=== PATIENT | male | born 1990 | race African-American/Black ===

== ENCOUNTER 2023-05-25 19:06 | Outpatient (REF) | payer OTHER, SELFPAY ==
--- NOTE | ~2023-05-25 | MR_ITS ---
EXAMINATION: MR CERVICAL SPINE WITHOUT CONTRAST CLINICAL INFORMATION: Quadriparesis COMPARISON: None TECHNIQUE: MRI of the cervical spine was obtained using routine sequences without contrast. FINDINGS: The craniocervical junction is intact. There is dextrocurvature of the cervical spine and partially imaged thoracic levocurvature. The cervical lordosis is preserved. Slight retrolisthesis at C3-C4 and C4-C5. Vertebral body heights are normal without acute compression fracture. No suspicious osseous lesion. There is multilevel disc desiccation with mild cited disc height loss along the concavity of the cervical dextrocurvature. Minimal cervical spondylosis with annular disc bulges, uncovertebral spurring, and asymmetric left-sided facet arthropathy, notably contributing to moderate left and mild right C3-C4 and C4-C5 neural foraminal stenosis. No spinal canal stenosis at any level. There is extensive volume loss and myelomalacia throughout the right greater than left cervical cord extending from the cervicomedullary junction throughout the cervical cord with relative dorsal positioning of the cord within the thecal sac. Myelomalacia extends into the thoracic cord to at least the level of T2 with partially imaged diminutive/atrophied appearance of the thoracic cord extending inferiorly beyond the [id number]. No epidural fluid collection, mass, or hematoma. No significant abnormalities of the paraspinal musculature. The flow voids of the major cervical vessels are maintained. The visualized intracranial structures are normal. Retention cyst in the left maxillary sinus alveolar recess with mild mucosal disease along the roof. No demonstrated abnormalities in the visualized neck. MR/MR cervical spine wo con IMPRESSION: 1. Extensive volume loss and myelomalacia throughout the cervicothoracic cord as above. 2. Cervical dextroscoliosis and partially imaged thoracic levoscoliosis. Discogenic disease and spondylitic changes along the concavity of the cervical dextrocurvature with resultant moderate left and mild right C3-C4 and C4-C5 neural foraminal stenosis. No significant spinal canal stenosis.
== END 2023-05-25 19:07 | disposition home or self-care (01) ==
LOC: HO.MRI 19:06
PROVIDERS: PCP Family Medicine; Visit Provider Psychiatry & Neurology Neurology
DX: G82.50 Quadriplegia, unspecified (principal)
CPT/HCPCS: 72141

== ENCOUNTER 2025-03-06 11:13 | Outpatient (AMB) | payer OTHER, SELFPAY ==
--- NOTE | 2025-03-06 11:19 | A.OFFVIS_ITS ---
Intake Visit Reasons: 1 Year Allergies No Known Allergies Allergy (Verified 02/27/25 06:56) HPI Comments Details: 34 yo man, orginally from [place], played soccer in childhood until about 12 years old when he started having problems. He was told that this was due to scoliosis and unless he would have surgery, he might not walk. Surgery was never done and he progressviely worsened. Now his both hands and legs were involved with weakness. His MRI of spine revealed extensive cervical and thoracic area myelomalacia and syrinx. He had the second neurosurgical opinion and he was told that surgery may not work. He said that he was doing all right with no new problems. He has help at home mostly by family. No bowel bladder difficulties. [facility] Medical History (Updated 03/06/25 @ 11:21 by Florence Grissom MD) Scoliosis Myelopathy Quadriparesis Review of Systems Const Details: No bowel bladder difficulties. Physical Exam Neuro Other: He is alert and awake with normal spontaneity of speech fluency comprehension and affect. Poor dental hygiene. Face is symmetrical. Visual duckworth are full. There was significant contraction of both hands with very limited movement of l eft thumb and index finger. He is walking in a ataxic gait swing [id number]. Speech is okay. Assessment & Plan Assessment & Plan (1) Quadriparesis: Code(s): G82.50 - Quadriplegia, unspecified Category: Medical (2) Myelopathy: Comment: MRI C spine at [facility] [place] in May 2023: Extensive myelomalacia and syrinx in C and T spinal cord. Code(s): G95.9 - Disease of spinal cord, unspecified Category: Medical (3) Scoliosis: Code(s): M41.9 - Scoliosis, unspecified Category: Medical Qualifiers: Scoliosis type: thoracogenic Spinal region: thoracolumbar Qualified Code(s): M41.35 - Thoracogenic scoliosis, thoracolumbar region (4) Multifactorial gait disorder: Code(s): R26.89 - Other abnormalities of gait and mobility Category: Medical Plan Impression recommendations: 34 years old man with multifactorial gait disorder mostly from extensive myelomalacia with a syrinx in cervical and thoracic area and scoliosis. There was no surgical option. Clinically, he was stable at this time. He was reassured educated and was advised to stay active and walk regularly with frequent intervals. His follow-up would be on as needed basis. Coding Level of Care Code Est Pt Level 4 (08243) Diagnoses Quadriparesis G82.50 Myelopathy G95.9 Thoracogenic scoliosis of thoracolumbar region M41.35 Scoliosis type: thoracogenic Spinal region: thoracolumbar Multifactorial gait disorder R26.89
--- OUTSIDE RECORDS SUMMARY | 2025-03-06 12:32 | XMS_ITS ---
Author Name [facility] Organization Unknown Care Team Organization Name Specialty Phone Email Start Date End Da te [facility] RIC GUAN Primary Care 04/12/2023 02/26/2024
--- OUTSIDE RECORDS SUMMARY | 2025-03-06 12:32 | XMS_ITS | Clinical Summary ---
Author Organization [facility] it Address [address] [place] [address] Care Team Providers Care [employer] Teacher Name Role Phone Elin Schroeder MD Primary Care Provider Allergies No known active allergies Active Problems Problem Noted Date Diagnosed Date Spastic quadriparesis ([facility] V24, [facility] V28) 01/27/2023 Syrinx of spinal cord ([facility] V24, [facility] V28) 01/27/2023 Infantile idiopathic scoliosis of thoracolumbar region 01/24/2023 Lower limb length difference 01/24/2023 Flexion deformity 01/24/2023 Arnold-Chiari malformation ([facility] V24, [facility] V28) 01/24/2023 Surgical History Surgery Date Site/Laterality Comments OTHER SURGICAL HISTORY PROCEDURE: DENIES PREVIOUS SURGERY Medical History Medical History Date Comments Scoliosis DX:Scoliosis Arnold-Chiari malformation ( [facility] V24, [facility] V28) DX:Arnold-Chiari malformatio n ([facility]) Osteoporosis DX:Osteoporosis TB lung, latent DX:TB lung, late nt; COMMENT: completed treatment w/ INH at [facility] Humerus fracture DX:Humerus frac ture; COMMENT: right humerus fracture 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 Family History Relation Name Status Comments Brother Alive Father Alive Mother Alive Sister 1 Alive Sister 2 Alive Social History Tobacco Use Types Packs/Day Years Used Date Smoking Tobacco: Never Smokeless Tobacco: Never Alcohol Use Standard Drinks/Week Comments Not Currently 0 (1 standard drink = 0.6 oz pur e alcohol) Sex and Gender Information Value Date Recorded Sex Assigned at Not on file Legal Sex Male 8:27 PM EST Gender Identity Not on file Sexual Orientation Not on file Obstetrics History Last Filed Vital Signs Vital Sign Reading Time Taken Comments Blood Pressure 112/60 09/19/2023 1:31 PM EDT Pulse 62 09/19/2023 1:31 PM EDT Temperature - - Respiratory Rate - - Oxygen Saturation - - Inhaled Oxygen Concentration - - Weight 52.2 kg (115 lb) 09/19/2023 1:31 PM EDT Height 165.1 cm (5' 5 ) 09/19/2023 1:31 PM EDT Body Mass Index 19.14 09/19/2023 1:31 PM EDT Plan of Treatment Health Maintenance Due Date Last Done Comments DTaP,Tdap,and Td Vaccines (1 - Tdap) 2009 Hepatitis B Vaccines (1 of 3 - 19+ 3-dose series) 2009 HIV Screening 08/04/2023 Hepatitis C Screening 08/04/2023 Social Influencers of Health Screening 08/04/2023 COVID-19 Vaccine (1 - 2023-2 5 season) 2024 Depression Screening 07/10/2024 Influenza Vaccine (#1) 2025 HIB Vaccines Aged Out No longer eligi ble based on patient's age to complete this topic HPV Vaccines Aged Out No longer eligi ble based on patient's age to complete this topic Hepatitis A Vaccines Aged Out No long er eligible based on patient's age to complete this topic IPV Vaccines Aged Out No longer eligi ble based on patient's age to complete this topic MMR Vaccines Aged Out No longer eligi ble based on patient's age to complete this topic Meningococcal ACWY Vaccine Aged Out N o longer eligible based on patient's age to complete this topic Meningococcal B Vaccine Aged Out No l onger eligible based on patient's age to complete this topic Pneumococcal Vaccine: Pediat rics (0 to 5 Years) and At-Risk Patients (6 to 49 Years) Aged Out No longer eligible b ased on patient's age to complete this topic RSV Immunization Patients Un kathia 20 months Aged Out No longer eligible b ased on patient's age to complete this topic Varicella Vaccines Aged Out No longer eligible based on patient's age to complete this topic Care Teams High School History Teacher Relationship Specialty Start Date End Date Elin Schroeder MD [facility] - General 01/04/23
== END 2025-03-06 11:49 | disposition home or self-care (01) ==
PROVIDERS: PCP Family Medicine; Referring Provider Family Medicine; Visit Provider Psychiatry & Neurology Neurology
DX: G82.50 Quadriplegia, unspecified (principal); G95.9 Disease of spinal cord, unspecified; M41.35 Thoracogenic scoliosis, thoracolumbar region; R26.89 Other abnormalities of gait and mobility
CPT/HCPCS: 99214